=== PATIENT | male | born 1950 | race Caucasian/White ===

== ENCOUNTER 2017-01-10 14:51 | Inpatient (IN) | payer OTHER ==
[~2017-01-10] VITALS: Ht 193 cm; Wt 117.5 kg
[2017-01-10 17:35] LABS: EOSINOPHIL (%) 2.5 % (0-5); EOSINOPHIL COUNT 0.2 K/uL (0-0.3); HEMATOCRIT 40.5 % (38.0-50.0); IMMATURE GRANULOCYTE (%) 0.3 % (0.0-0.7); IMMATURE GRANULOCYTE COUNT 0.2 K/uL; LYMPHOCYTE COUNT 1.3 K/uL (1.0-2.8); MCH 34.5 PG (29.0-34.0); MCHC 34.6 G/DL (30.0-36.0); MCV 99.8 FL (86-99); MONOCYTE (%) 9.9 % (3-12); MONOCYTE COUNT 0.6 K/uL (0-0.8); NEUTROPHIL (%) 66.9 % (45-76); NEUTROPHIL COUNT 4.3 K/uL (1.8-6.4); RBC DIS.WIDTH-CV 13.7 % (11.8-14.6); RED BLOOD COUNT 4.06 M/uL (4.00-5.50); WHITE BLOOD COUNT 6.4 K/uL (4.1-10.2)
[2017-01-10 17:45] LABS: CHLORIDE 99 mEq/L (99-109)
[2017-01-10 17:46] LABS: POTASSIUM 3.5 mEq/L (3.7-5.4); SODIUM 141 mEq/L (136-147)
[2017-01-10 17:47] LABS: GLUCOSE 80 mg/dL (70-99)
[2017-01-10 17:49] LABS: ANION GAP 16 MEQ/L (2-14)
[2017-01-10 17:51] LABS: GFR ESTIMATE (CALCULATED) > 59 mL/min/
[2017-01-10 17:52] LABS: UREA NITROGEN (BUN) 9 mg/dL (9-23)
[2017-01-10 17:57] LABS: TROP-I INTERPRETATION NEGATIVE; TROPONIN-I 0.03 ng/mL (0.0-0.30)
[2017-01-10 19:02] LABS: PLAT.SUFFICIENCY ADEQUATE; USER ID BW1
[2017-01-10 19:03] LABS: MEAN PLAT.VOLUME 10.3 uM^3 (9.0-12.4); PLATELET COUNT 180 K/uL (156-360)
[2017-01-10] MEDS ORDERED: LIORESAL10 MG PO (22:07)
[2017-01-10] MEDS ORDERED: AMANTADINE100 MG PO (22:07)
[2017-01-10] MEDS ORDERED: LASIX20 MG PO (22:08)
[2017-01-10] MEDS ORDERED: AVONEX30 MICROGR IM (22:08)
[2017-01-10] MEDS ORDERED: THERAGRAN1 TABLET PO (22:09)
[2017-01-10] MEDS ORDERED: NIZORAL SHAMPO120 ML TP (22:09)
[2017-01-10] MEDS ORDERED: ROSADAN45 G1 TP (22:09)
[2017-01-10] MEDS ORDERED: VITAMIN B-1100 MG PO (22:10)
[2017-01-10] MEDS ORDERED: PAXIL40 MG PO (22:10)
[2017-01-10] MEDS ORDERED: PRAVACHOL80 MG PO (22:10)
[2017-01-10] MEDS ORDERED: AMBIEN5 MG PO (22:10)
[2017-01-10] MEDS ORDERED: LITE COAT ASPI325 M1 PO (22:11)
[2017-01-10] MEDS ORDERED: NEO-BACIT-POLY3.5 G2 BOTH EYES (22:11)
[2017-01-10] MEDS ORDERED: ZESTRIL40 MG PO (22:12)
[2017-01-10] MEDS ORDERED: COLACE100 MG PO (22:12)
[2017-01-10] MEDS ORDERED: KEFLEX500 MG PO (22:20)
[2017-01-11] VITALS (7 sets, daily range): BP systolic 102–164; BP diastolic 55–87
[2017-01-11 01:06] LABS: PROTHROMBIN TIME 10.5 (9.2-11.2)
[2017-01-11 08:08] LABS: EOSINOPHIL (%) 0.2 % (0-5); IMMATURE GRANULOCYTE (%) 0.6 % (0.0-0.7); LYMPHOCYTE COUNT 1.1 K/uL (1.0-2.8); MCH 32.5 PG (29.0-34.0); MCHC 32.4 G/DL (30.0-36.0); MCV 100.3 FL (86-99); MEAN PLAT.VOLUME 10.4 uM^3 (9.0-12.4); MONOCYTE COUNT 0.6 K/uL (0-0.8); NEUTROPHIL (%) 65.5 % (45-76); NEUTROPHIL COUNT 3.5 K/uL (1.8-6.4); PLATELET COUNT 150 K/uL (156-360); RBC DIS.WIDTH-CV 13.5 % (11.8-14.6); RBC DIS.WIDTH-SD 49.2 % (39-53); RED BLOOD COUNT 3.79 M/uL (4.00-5.50); WHITE BLOOD COUNT 5.3 K/uL (4.1-10.2)
[2017-01-11 08:59] LABS: ANION GAP 13 MEQ/L (2-14); CHLORIDE 100 MEQ/L (99-109); GFR ESTIMATE (CALCULATED) > 59 mL/min/; POTASSIUM 3.4 MEQ/L (3.7-5.4); SAMPLE HEMOLYSIS CHECK 0; SAMPLE ICTERIC CHECK 0; SAMPLE LIPEMIA CHECK 0; SODIUM 139 MEQ/L (136-147); UREA NITROGEN (BUN) 10 mg/dL (9-23)
[2017-01-11 09:08] LABS: GLUCOSE 115 mg/dL (70-99)
[2017-01-12 03:58] VITALS: BP 121/73
[2017-01-12 05:14] LABS: EOSINOPHIL (%) 2.2 % (0-5); EOSINOPHIL COUNT 0.1 K/uL (0-0.3); HEMATOCRIT 34.9 % (38.0-50.0); IMMATURE GRANULOCYTE (%) 0.4 % (0.0-0.7); LYMPHOCYTE COUNT 1.2 K/uL (1.0-2.8); MCH 33.1 PG (29.0-34.0); MCHC 32.7 G/DL (30.0-36.0); MCV 101.5 FL (86-99); MEAN PLAT.VOLUME 10.4 uM^3 (9.0-12.4); MONOCYTE (%) 12.3 % (3-12); MONOCYTE COUNT 0.6 K/uL (0-0.8); NEUTROPHIL (%) 59.4 % (45-76); NEUTROPHIL COUNT 2.7 K/uL (1.8-6.4); PLATELET COUNT 119 K/uL (156-360); RBC DIS.WIDTH-CV 13.4 % (11.8-14.6); RBC DIS.WIDTH-SD 49.4 % (39-53); RED BLOOD COUNT 3.44 M/uL (4.00-5.50); WHITE BLOOD COUNT 4.6 K/uL (4.1-10.2)
[2017-01-12 05:39] LABS: ANION GAP 9 MEQ/L (2-14); CHLORIDE 103 MEQ/L (99-109); GFR ESTIMATE (CALCULATED) > 59 mL/min/; GLUCOSE 106 mg/dL (70-99); MAGNESIUM 1.4 mg/dl (1.3-2.7); POTASSIUM 3.1 MEQ/L (3.7-5.4); SAMPLE HEMOLYSIS CHECK 0; SAMPLE ICTERIC CHECK 0; SAMPLE LIPEMIA CHECK 0; SODIUM 141 MEQ/L (136-147); UREA NITROGEN (BUN) 6 mg/dL (9-23)
[2017-01-12 07:46] VITALS: BP 119/74
[2017-01-12 11:30] VITALS: BP 126/64
[2017-01-12 15:57] VITALS: BP 139/71
[2017-01-12 19:39] VITALS: BP 142/76
[2017-01-12 23:54] VITALS: BP 169/76
[2017-01-13 05:24] VITALS: BP 157/88
[2017-01-13 08:30] VITALS: BP 125/74
[2017-01-13 08:49] LABS: EOSINOPHIL (%) 4.6 % (0-5); EOSINOPHIL COUNT 0.2 K/uL (0-0.3); HEMATOCRIT 36.6 % (38.0-50.0); IMMATURE GRANULOCYTE (%) 0.8 % (0.0-0.7); LYMPHOCYTE COUNT 1.3 K/uL (1.0-2.8); MCH 34.6 PG (29.0-34.0); MCHC 33.9 G/DL (30.0-36.0); MCV 102.2 FL (86-99); MEAN PLAT.VOLUME 10.4 uM^3 (9.0-12.4); MONOCYTE (%) 9.9 % (3-12); MONOCYTE COUNT 0.5 K/uL (0-0.8); NEUTROPHIL (%) 59.2 % (45-76); NEUTROPHIL COUNT 3.1 K/uL (1.8-6.4); PLATELET COUNT 120 K/uL (156-360); RBC DIS.WIDTH-CV 13.1 % (11.8-14.6); RBC DIS.WIDTH-SD 48.7 % (39-53); RED BLOOD COUNT 3.58 M/uL (4.00-5.50); WHITE BLOOD COUNT 5.3 K/uL (4.1-10.2)
[2017-01-13 10:43] LABS: ANION GAP 9 MEQ/L (2-14); CHLORIDE 101 MEQ/L (99-109); GFR ESTIMATE (CALCULATED) > 59 mL/min/; GLUCOSE 105 mg/dL (70-99); MAGNESIUM 1.7 mg/dl (1.3-2.7); POTASSIUM 3.7 MEQ/L (3.7-5.4); SAMPLE HEMOLYSIS CHECK 0; SAMPLE ICTERIC CHECK 0; SAMPLE LIPEMIA CHECK 0; SODIUM 142 MEQ/L (136-147); UREA NITROGEN (BUN) 6 mg/dL (9-23)
[2017-01-13 11:30] VITALS: BP 126/65
[2017-01-13 15:42] VITALS: BP 141/77
[2017-01-13 19:41] VITALS: BP 136/70
[2017-01-14] VITALS (7 sets, daily range): BP systolic 130–150; BP diastolic 67–79
[2017-01-14 06:09] LABS: EOSINOPHIL (%) 3.7 % (0-5); EOSINOPHIL COUNT 0.2 K/uL (0-0.3); HEMATOCRIT 35.1 % (38.0-50.0); IMMATURE GRANULOCYTE (%) 0.8 % (0.0-0.7); LYMPHOCYTE COUNT 1.4 K/uL (1.0-2.8); MCH 33.3 PG (29.0-34.0); MCV 100.9 FL (86-99); MEAN PLAT.VOLUME 10.6 uM^3 (9.0-12.4); MONOCYTE (%) 12.1 % (3-12); MONOCYTE COUNT 0.6 K/uL (0-0.8); NEUTROPHIL (%) 53.9 % (45-76); NEUTROPHIL COUNT 2.6 K/uL (1.8-6.4); PLATELET COUNT 128 K/uL (156-360); RBC DIS.WIDTH-CV 13.2 % (11.8-14.6); RBC DIS.WIDTH-SD 47.9 % (39-53); RED BLOOD COUNT 3.48 M/uL (4.00-5.50); WHITE BLOOD COUNT 4.9 K/uL (4.1-10.2)
[2017-01-14 06:25] LABS: ANION GAP 6 MEQ/L (2-14); CHLORIDE 102 MEQ/L (99-109); GFR ESTIMATE (CALCULATED) > 59 mL/min/; GLUCOSE 112 mg/dL (70-99); MAGNESIUM 1.7 mg/dl (1.3-2.7); POTASSIUM 3.1 MEQ/L (3.7-5.4); SAMPLE HEMOLYSIS CHECK 0; SAMPLE ICTERIC CHECK 0; SAMPLE LIPEMIA CHECK 0; SODIUM 139 MEQ/L (136-147); UREA NITROGEN (BUN) 5 mg/dL (9-23)
[2017-01-15 03:42] VITALS: BP 134/86
[2017-01-15 06:03] LABS: ANION GAP 7 MEQ/L (2-14); CHLORIDE 103 MEQ/L (99-109); GFR ESTIMATE (CALCULATED) > 59 mL/min/; GLUCOSE 107 mg/dL (70-99); MAGNESIUM 1.8 mg/dl (1.3-2.7); POTASSIUM 3.3 MEQ/L (3.7-5.4); SAMPLE HEMOLYSIS CHECK 0; SAMPLE ICTERIC CHECK 0; SAMPLE LIPEMIA CHECK 0; SODIUM 140 MEQ/L (136-147); UREA NITROGEN (BUN) 7 mg/dL (9-23)
[2017-01-15 06:50] LABS: EOSINOPHIL (%) 3.7 % (0-5); EOSINOPHIL COUNT 0.2 K/uL (0-0.3); HEMATOCRIT 35.4 % (38.0-50.0); IMMATURE GRANULOCYTE (%) 0.7 % (0.0-0.7); LYMPHOCYTE COUNT 1.3 K/uL (1.0-2.8); MCH 34.8 PG (29.0-34.0); MCHC 34.2 G/DL (30.0-36.0); MCV 101.7 FL (86-99); MEAN PLAT.VOLUME 11.3 uM^3 (9.0-12.4); MONOCYTE COUNT 0.6 K/uL (0-0.8); NEUTROPHIL (%) 51.6 % (45-76); NEUTROPHIL COUNT 2.2 K/uL (1.8-6.4); PLATELET COUNT 139 K/uL (156-360); RBC DIS.WIDTH-CV 13.4 % (11.8-14.6); RBC DIS.WIDTH-SD 49.1 % (39-53); RED BLOOD COUNT 3.48 M/uL (4.00-5.50); WHITE BLOOD COUNT 4.3 K/uL (4.1-10.2)
[2017-01-15 08:33] VITALS: BP 128/64
[2017-01-15 13:15] VITALS: BP 123/73
[2017-01-15 16:16] VITALS: BP 142/73
[2017-01-15 19:31] VITALS: BP 138/92
[2017-01-15 23:09] VITALS: BP 146/81
[2017-01-16 07:39] VITALS: BP 159/84
[2017-01-16 08:52] LABS: ANION GAP 7 MEQ/L (2-14); CHLORIDE 103 MEQ/L (99-109); GFR ESTIMATE (CALCULATED) > 59 mL/min/; GLUCOSE 96 mg/dL (70-99); MAGNESIUM 1.9 mg/dl (1.3-2.7); POTASSIUM 3.9 MEQ/L (3.7-5.4); SAMPLE HEMOLYSIS CHECK 0; SAMPLE ICTERIC CHECK 0; SAMPLE LIPEMIA CHECK 0; SODIUM 141 MEQ/L (136-147); UREA NITROGEN (BUN) 7 mg/dL (9-23)
[2017-01-16 11:56] VITALS: BP 140/77
[2017-01-16 16:15] VITALS: BP 152/89
[2017-01-16 19:52] VITALS: BP 158/79
[2017-01-16 23:29] VITALS: BP 153/79
[2017-01-17 04:10] VITALS: BP 161/80
[2017-01-17 05:37] LABS: HEMATOCRIT 39.7 % (38.0-50.0); MCH 34.9 PG (29.0-34.0); MCV 102.6 FL (86-99); MEAN PLAT.VOLUME 11.3 uM^3 (9.0-12.4); PLATELET COUNT 165 K/uL (156-360); RBC DIS.WIDTH-CV 13.7 % (11.8-14.6); RBC DIS.WIDTH-SD 51.4 % (39-53); RED BLOOD COUNT 3.87 M/uL (4.00-5.50); WHITE BLOOD COUNT 4.8 K/uL (4.1-10.2)
[2017-01-17 06:03] LABS: ANION GAP 8 MEQ/L (2-14); CHLORIDE 103 MEQ/L (99-109); GFR ESTIMATE (CALCULATED) > 59 mL/min/; GLUCOSE 96 mg/dL (70-99); POTASSIUM 3.6 MEQ/L (3.7-5.4); SAMPLE HEMOLYSIS CHECK 0; SAMPLE ICTERIC CHECK 0; SAMPLE LIPEMIA CHECK 0; SODIUM 141 MEQ/L (136-147); UREA NITROGEN (BUN) 9 mg/dL (9-23)
[2017-01-17 08:11] VITALS: BP 152/82
[2017-01-17 11:42] VITALS: BP 154/78
[2017-01-17 15:53] VITALS: BP 127/68
[2017-01-17 20:27] VITALS: BP 121/63
[2017-01-17 23:58] VITALS: BP 139/78
[2017-01-18 04:12] VITALS: BP 152/83
[2017-01-18 05:29] LABS: HEMATOCRIT 40.2 % (38.0-50.0); MCH 34.4 PG (29.0-34.0); MCHC 33.6 G/DL (30.0-36.0); MCV 102.3 FL (86-99); MEAN PLAT.VOLUME 11.3 uM^3 (9.0-12.4); PLATELET COUNT 184 K/uL (156-360); RBC DIS.WIDTH-CV 13.7 % (11.8-14.6); RBC DIS.WIDTH-SD 51.9 % (39-53); RED BLOOD COUNT 3.93 M/uL (4.00-5.50); WHITE BLOOD COUNT 5.1 K/uL (4.1-10.2)
[2017-01-18 05:38] LABS: ANION GAP 8 MEQ/L (2-14); CHLORIDE 103 MEQ/L (99-109); GFR ESTIMATE (CALCULATED) > 59 mL/min/; GLUCOSE 119 mg/dL (70-99); POTASSIUM 3.9 MEQ/L (3.7-5.4); SAMPLE HEMOLYSIS CHECK 0; SAMPLE ICTERIC CHECK 0; SAMPLE LIPEMIA CHECK 0; SODIUM 141 MEQ/L (136-147); UREA NITROGEN (BUN) 11 mg/dL (9-23)
[2017-01-18 08:00] VITALS: BP 132/70
[2017-01-18 11:50] VITALS: BP 127/87
[2017-01-18 16:00] VITALS: BP 110/62
[2017-01-18 19:40] VITALS: BP 137/77
[2017-01-18 23:34] VITALS: BP 126/71
[2017-01-19 04:06] VITALS: BP 152/83
[2017-01-19 06:01] LABS: MCH 33.7 PG (29.0-34.0); MCHC 32.8 G/DL (30.0-36.0); MCV 102.8 FL (86-99); MEAN PLAT.VOLUME 10.8 uM^3 (9.0-12.4); PLATELET COUNT 215 K/uL (156-360); RBC DIS.WIDTH-CV 13.4 % (11.8-14.6); RBC DIS.WIDTH-SD 50.6 % (39-53); RED BLOOD COUNT 3.89 M/uL (4.00-5.50); WHITE BLOOD COUNT 4.8 K/uL (4.1-10.2)
[2017-01-19 08:00] VITALS: BP 129/75
[2017-01-19 12:00] VITALS: BP 110/81
[2017-01-19 16:00] VITALS: BP 126/72
[2017-01-19 19:27] VITALS: BP 130/73
[2017-01-19 23:26] VITALS: BP 152/84
[2017-01-20 04:35] VITALS: BP 127/79
[2017-01-20 07:49] VITALS: BP 124/80
[2017-01-20 11:58] VITALS: BP 131/79
[2017-01-20 15:56] VITALS: BP 120/68
[2017-01-20 20:42] VITALS: BP 121/66
[2017-01-21] VITALS (7 sets, daily range): BP systolic 114–130; BP diastolic 55–77
[2017-01-22] VITALS (7 sets, daily range): BP systolic 108–138; BP diastolic 56–76
[2017-01-22 03:01] LABS: HEMATOCRIT 37.6 % (38.0-50.0); MCH 33.6 PG (29.0-34.0); MCHC 32.4 G/DL (30.0-36.0); MCV 103.6 FL (86-99); MEAN PLAT.VOLUME 10.2 uM^3 (9.0-12.4); PLATELET COUNT 245 K/uL (156-360); RBC DIS.WIDTH-CV 13.1 % (11.8-14.6); RBC DIS.WIDTH-SD 50.6 % (39-53); RED BLOOD COUNT 3.63 M/uL (4.00-5.50); WHITE BLOOD COUNT 5.9 K/uL (4.1-10.2)
[2017-01-23 04:07] VITALS: BP 132/76
[2017-01-23 07:19] VITALS: BP 146/68
[2017-01-23 11:51] VITALS: BP 145/67
[2017-01-23 15:38] VITALS: BP 169/88
[2017-01-23 20:41] VITALS: BP 108/58
[2017-01-23 23:36] VITALS: BP 125/69
[2017-01-24 04:05] VITALS: BP 116/64
[2017-01-24 06:06] LABS: HEMATOCRIT 37.4 % (38.0-50.0); MCH 33.6 PG (29.0-34.0); MCHC 32.4 G/DL (30.0-36.0); MCV 103.9 FL (86-99); MEAN PLAT.VOLUME 10.8 uM^3 (9.0-12.4); PLATELET COUNT 263 K/uL (156-360); RBC DIS.WIDTH-CV 13.2 % (11.8-14.6); RBC DIS.WIDTH-SD 51.5 % (39-53); WHITE BLOOD COUNT 6.1 K/uL (4.1-10.2)
[2017-01-24 07:55] VITALS: BP 125/72
[2017-01-24 11:13] VITALS: BP 144/75
[2017-01-24] MEDS ORDERED: LO-DOSE ASPIRIN81 M2 PO (12:18)
[2017-01-24] MEDS ORDERED: FOLIC ACID1 MG PO (12:20)
[2017-01-24 16:22] VITALS: BP 123/55
[2017-01-24 19:37] VITALS: BP 111/65
[2017-01-24 23:28] VITALS: BP 118/69
[2017-01-25 04:35] VITALS: BP 131/71
[2017-01-25 08:00] VITALS: BP 128/86
[2017-01-25 12:10] VITALS: BP 135/70
== END 2017-01-25 13:15 | DRG 602 ==
LOC: EME 14:51 → EDOF 22:26 → 3EAST 22:26
PROVIDERS: Emergency Medicine; Hospitalist; Internal Medicine; Physician Assistant
PROC: 0HDMXZZ Extraction of Right Foot Skin, External Approach (ICD-10-PCS; principal; 2017-01-11)
DX: L03.115 Cellulitis of right lower limb (principal); I26.99 Other pulmonary embolism without acute cor pulmonale; F10.239 Alcohol dependence with withdrawal, unspecified; C22.8 Malignant neoplasm of liver, primary, unspecified as to type; D69.6 Thrombocytopenia, unspecified; C79.72 Secondary malignant neoplasm of left adrenal gland; I16.9 Hypertensive crisis, unspecified; N28.1 Cyst of kidney, acquired; S92.501A Displaced unspecified fracture of right lesser toe(s), initial encounter for closed fracture; S92.502A Displaced unspecified fracture of left lesser toe(s), initial encounter for closed fracture; I87.8 Other specified disorders of veins; J44.9 Chronic obstructive pulmonary disease, unspecified; G35 Multiple sclerosis; R29.6 Repeated falls; E66.01 Morbid (severe) obesity due to excess calories; I83.12 Varicose veins of left lower extremity with inflammation; I83.11 Varicose veins of right lower extremity with inflammation; E87.6 Hypokalemia; K80.20 Calculus of gallbladder without cholecystitis without obstruction; K76.0 Fatty (change of) liver, not elsewhere classified; Z87.891 Personal history of nicotine dependence
CPT/HCPCS: 71020; 71275; 73630; 74177; 74183; 80048; 83735; 84484; 85025; 85027; 85379; 85610; 85730; 87040; 93005; 93306; 93970; 94799; 97530 GO; 97530 GP; 99281; 99285; G9033; J0690; J2405; J3370; J7030

== ENCOUNTER 2017-03-05 09:18 | Inpatient (IN) | payer OTHER ==
[~2017-03-05] VITALS: Ht 182.9 cm; Wt 108.3 kg
[~2017-03-05 09:18] MED LIST: AMANTADINE100 MG PO; AMBIEN5 MG PO; AVONEX30 MICROGR IM; COLACE100 MG PO; FOLIC ACID1 MG PO; KEFLEX500 MG PO; LASIX20 MG PO; LIORESAL10 MG PO; LITE COAT ASPI325 M1 PO; LO-DOSE ASPIRIN81 M2 PO; NEO-BACIT-POLY3.5 G2 BOTH EYES; NIZORAL SHAMPO120 ML TP; PAXIL40 MG PO; PRAVACHOL80 MG PO; ROSADAN45 G1 TP; THERAGRAN1 TABLET PO; VITAMIN B-1100 MG PO; ZESTRIL40 MG PO
[2017-03-05 10:10] LABS: EOSINOPHIL (%) 2.7 % (0-5); EOSINOPHIL COUNT 0.2 K/uL (0-0.3); IMMATURE GRANULOCYTE (%) 0.4 % (0.0-0.7); INSTRUMENT ABS NEUTROPHIL CT 5.3 K/uL; LYMPHOCYTE COUNT 1.7 K/uL (1.0-2.8); MCH 31.4 PG (29.0-34.0); MCHC 33.3 G/DL (30.0-36.0); MCV 94.2 FL (86-99); MEAN PLAT.VOLUME 9.9 uM^3 (9.0-12.4); MONOCYTE (%) 9.1 % (3-12); MONOCYTE COUNT 0.7 K/uL (0-0.8); NEUTROPHIL (%) 65.9 % (45-76); NEUTROPHIL COUNT 5.3 K/uL (1.8-6.4); PLATELET COUNT 266 K/uL (156-360); RBC DIS.WIDTH-CV 13.2 % (11.8-14.6); RED BLOOD COUNT 3.82 M/uL (4.00-5.50)
[2017-03-05 10:18] LABS: CHLORIDE 101 mEq/L (99-109); POTASSIUM 4.5 mEq/L (3.7-5.4); SODIUM 138 mEq/L (136-147)
[2017-03-05 10:21] LABS: GLUCOSE 103 mg/dL (70-99)
[2017-03-05 10:22] LABS: ANION GAP 9 MEQ/L (2-14); TOTAL BILIRUBIN 0.8 mg/dL (0.0-1.0)
[2017-03-05 10:24] LABS: ALKALINE PHOSPHATASE 72 IU/L (3-129); GFR ESTIMATE (CALCULATED) > 59 mL/min/
[2017-03-05 10:25] LABS: UREA NITROGEN (BUN) 11 mg/dL (9-23)
[2017-03-05 17:09] VITALS: BP 131/78
[2017-03-05 22:41] VITALS: BP 128/76
[2017-03-06 07:02] VITALS: BP 126/70
[2017-03-06 07:10] LABS: HEMATOCRIT 33.1 % (38.0-50.0); MCH 31.6 PG (29.0-34.0); MCHC 33.2 G/DL (30.0-36.0); MCV 95.1 FL (86-99); MEAN PLAT.VOLUME 10.3 uM^3 (9.0-12.4); PLATELET COUNT 215 K/uL (156-360); RBC DIS.WIDTH-CV 13.2 % (11.8-14.6); RBC DIS.WIDTH-SD 45.2 % (39-53); RED BLOOD COUNT 3.48 M/uL (4.00-5.50); WHITE BLOOD COUNT 6.6 K/uL (4.1-10.2)
[2017-03-06 07:38] LABS: ANION GAP 7 MEQ/L (2-14); CHLORIDE 104 MEQ/L (99-109); GFR ESTIMATE (CALCULATED) > 59 mL/min/; GLUCOSE 111 mg/dL (70-99); POTASSIUM 3.8 MEQ/L (3.7-5.4); SAMPLE HEMOLYSIS CHECK 0; SAMPLE ICTERIC CHECK 0; SAMPLE LIPEMIA CHECK 0; SODIUM 139 MEQ/L (136-147); UREA NITROGEN (BUN) 9 mg/dL (9-23)
[2017-03-06 15:31] VITALS: BP 124/76
[2017-03-06 22:26] VITALS: BP 132/78
[2017-03-07 06:50] LABS: EOSINOPHIL (%) 4.7 % (0-5); EOSINOPHIL COUNT 0.3 K/uL (0-0.3); HEMATOCRIT 33.8 % (38.0-50.0); IMMATURE GRANULOCYTE (%) 0.7 % (0.0-0.7); IMMATURE GRANULOCYTE COUNT 0.1 K/uL; INSTRUMENT ABS NEUTROPHIL CT 3.9 K/uL; MCH 31.4 PG (29.0-34.0); MCHC 33.4 G/DL (30.0-36.0); MCV 93.9 FL (86-99); MEAN PLAT.VOLUME 10.1 uM^3 (9.0-12.4); MONOCYTE (%) 9.2 % (3-12); MONOCYTE COUNT 0.6 K/uL (0-0.8); NEUTROPHIL (%) 56.7 % (45-76); NEUTROPHIL COUNT 3.9 K/uL (1.8-6.4); PLATELET COUNT 212 K/uL (156-360); RBC DIS.WIDTH-SD 44.3 % (39-53)
[2017-03-07 07:05] VITALS: BP 116/65
[2017-03-07 07:19] LABS: ALKALINE PHOSPHATASE 64 IU/L (3-129); ANION GAP 9 MEQ/L (2-14); CHLORIDE 105 MEQ/L (99-109); GFR ESTIMATE (CALCULATED) > 59 mL/min/; GLUCOSE 104 mg/dL (70-99); POTASSIUM 3.8 MEQ/L (3.7-5.4); SAMPLE HEMOLYSIS CHECK 0; SAMPLE ICTERIC CHECK 0; SAMPLE LIPEMIA CHECK 0; SODIUM 141 MEQ/L (136-147); TOTAL BILIRUBIN 0.6 MG/DL (0.0-1.0); UREA NITROGEN (BUN) 9 mg/dL (9-23)
[2017-03-07 15:29] VITALS: BP 110/71
[2017-03-07 22:36] VITALS: BP 127/64
[2017-03-08 06:58] VITALS: BP 142/76
[2017-03-08] MEDS ORDERED: DOXYCYCLINE HY100 MG PO (12:56)
== END 2017-03-08 15:08 | DRG 603 ==
LOC: EME 09:18 → EDOF 12:57 → 5EAST 12:57
PROVIDERS: Emergency Medicine; Hospitalist; Internal Medicine
DX: L03.116 Cellulitis of left lower limb (principal); I87.8 Other specified disorders of veins; L03.115 Cellulitis of right lower limb; G35 Multiple sclerosis; E78.5 Hyperlipidemia, unspecified; I10 Essential (primary) hypertension; N31.9 Neuromuscular dysfunction of bladder, unspecified; N39.498 Other specified urinary incontinence; Z87.891 Personal history of nicotine dependence; Z86.711 Personal history of pulmonary embolism; Z85.46 Personal history of malignant neoplasm of prostate; Z91.81 History of falling
CPT/HCPCS: 80048; 80053; 80202; 83605; 85025; 85027; 87040; 93970; 97530 GP; 99281; 99285; G9033; J0690; J1650; J3370; J7050

== ENCOUNTER 2017-08-11 15:02 | Emergency (ER) | payer OTHER ==
[~2017-08-11] VITALS: Ht 182.9 cm; Wt 116.1 kg
[~2017-08-11 15:02] MED LIST changes: +DOXYCYCLINE HY100 MG PO
[2017-08-11 15:47] LABS: ADD MIUA? YES; BILIRUBIN NEGATIVE; BLOOD NEGATIVE; COLOR YELLOW ((YELLOW)); GLUCOSE (STRIP) NEGATIVE; KETONES NEGATIVE; LEUKOCYTES SMALL; NITRITE NEGATIVE; PROTEIN (STRIP) NEGATIVE; SPECIFIC GRAVITY 1.006 (1.000-1.030)
[2017-08-11 15:49] LABS: BACTERIA NONE SEEN /HPF; EPITHELIAL CELLS NONE SEEN /HPF; MUCUS NONE SEEN /LPF; RED BLOOD CELLS 0-5 /HPF (0-5); WHITE BLOOD CELLS 20-30 /HPF (0-5)
[2017-08-11 15:51] LABS: EOSINOPHIL (%) 1.1 % (0-5); EOSINOPHIL COUNT 0.1 K/uL (0-0.3); HEMATOCRIT 42.1 % (38.0-50.0); IMMATURE GRANULOCYTE (%) 0.4 % (0.0-0.7); INSTRUMENT ABS NEUTROPHIL CT 7.3 K/uL; LYMPHOCYTE COUNT 1.4 K/uL (1.0-2.8); MCH 31.9 PG (29.0-34.0); MEAN PLAT.VOLUME 9.8 uM^3 (9.0-12.4); MONOCYTE (%) 8.1 % (3-12); MONOCYTE COUNT 0.8 K/uL (0-0.8); NEUTROPHIL (%) 75.8 % (45-76); NEUTROPHIL COUNT 7.3 K/uL (1.8-6.4); PLATELET COUNT 215 K/uL (156-360); RBC DIS.WIDTH-CV 13.6 % (11.8-14.6); RED BLOOD COUNT 4.48 M/uL (4.00-5.50); WHITE BLOOD COUNT 9.6 K/uL (4.1-10.2)
[2017-08-11 15:59] LABS: CHLORIDE 100 mEq/L (99-109); POTASSIUM 4.3 mEq/L (3.7-5.4); SODIUM 138 mEq/L (136-147)
[2017-08-11 16:01] LABS: GLUCOSE 113 mg/dL (70-99)
[2017-08-11 16:02] LABS: ANION GAP 13 MEQ/L (2-14)
[2017-08-11 16:05] LABS: GFR ESTIMATE (CALCULATED) > 59 mL/min/
[2017-08-11 16:06] LABS: UREA NITROGEN (BUN) 12 mg/dL (9-23)
[2017-08-11] MEDS ORDERED: BACTRIM,SEPT1 TABLET PO (16:42)
[2017-08-11 16:58] VITALS: BP 134/93
== END 2017-08-11 17:12 | disposition home or self-care (01) ==
LOC: EME → EDBD 15:02 → EME 15:02
PROVIDERS: Emergency Medicine
PROC: 0T9B70Z Drainage of Bladder with Drainage Device, Via Natural or Artificial Opening (ICD-10-PCS; principal; 2017-08-11)
DX: R33.9 Retention of urine, unspecified (principal); N39.0 Urinary tract infection, site not specified; Z85.46 Personal history of malignant neoplasm of prostate; I10 Essential (primary) hypertension; E78.5 Hyperlipidemia, unspecified; Z87.891 Personal history of nicotine dependence
CPT/HCPCS: 80048; 81003; 85025; 87077; 87086; 87186; 99281; 99285

== ENCOUNTER 2017-09-26 13:34 | Emergency (ER) | payer OTHER ==
[~2017-09-26] VITALS: Ht 180.3 cm; Wt 111.3 kg
[~2017-09-26 13:34] MED LIST changes: +BACTRIM,SEPT1 TABLET PO
[2017-09-26] MEDS ORDERED: LEVAQUIN500 MG PO (15:54)
[2017-09-26 16:13] LABS: ADD MIUA? YES; BILIRUBIN NEGATIVE; BLOOD LARGE; COLOR YELLOW ((YELLOW)); GLUCOSE (STRIP) NEGATIVE; KETONES NEGATIVE; LEUKOCYTES TRACE; NITRITE NEGATIVE; PROTEIN (STRIP) NEGATIVE; SPECIFIC GRAVITY 1.005 (1.000-1.030)
[2017-09-26 16:26] LABS: BACTERIA RARE /HPF; CALCIUM OXALATE CRYSTALS 1+ /HPF; EPITHELIAL CELLS NONE SEEN /HPF; HYALINE CASTS 0-5 /LPF; MUCUS TRACE /LPF; RED BLOOD CELLS 30-40 /HPF (0-5); UCUL ADDED? YES
[2017-09-26 17:30] VITALS: BP 130/79
== END 2017-09-26 17:30 | disposition home or self-care (01) ==
LOC: EME 13:34
PROVIDERS: Physician Assistant
PROC: 0T9B70Z Drainage of Bladder with Drainage Device, Via Natural or Artificial Opening (ICD-10-PCS; principal; 2017-09-26)
DX: R33.9 Retention of urine, unspecified (principal); C61 Malignant neoplasm of prostate; N36.8 Other specified disorders of urethra; G35 Multiple sclerosis; N31.9 Neuromuscular dysfunction of bladder, unspecified; R31.9 Hematuria, unspecified; Z92.3 Personal history of irradiation; Z87.891 Personal history of nicotine dependence
CPT/HCPCS: 81003; 87077; 87086; 87186; 99281; 99284

== ENCOUNTER 2017-12-28 11:29 | Emergency (ER) | payer OTHER ==
[~2017-12-28] VITALS: Ht 180.3 cm; Wt 130.0 kg
[~2017-12-28 11:29] MED LIST changes: +LEVAQUIN500 MG PO
[2017-12-28 12:12] LABS: HEMATOCRIT 39.4 % (38.0-50.0); HEMOGLOBIN 13.2 G/DL (12.5-16.6); MCH 30.5 PG (29.0-34.0); MCHC 33.5 G/DL (30.0-36.0); PLATELET COUNT 246 K/uL (156-360); RBC DIS.WIDTH-CV 13.5 % (11.8-14.6); RBC DIS.WIDTH-SD 45.6 % (39-53); RED BLOOD COUNT 4.33 M/uL (4.00-5.50); WHITE BLOOD COUNT 8.4 K/uL (4.1-10.2)
[2017-12-28 12:26] LABS: CHLORIDE 99 mEq/L (99-109); POTASSIUM 4.1 mEq/L (3.7-5.4); SODIUM 136 mEq/L (136-147)
[2017-12-28 12:28] LABS: GLUCOSE 94 mg/dL (70-99)
[2017-12-28 12:31] LABS: CREATININE 1.2 mg/dL (0.6-1.3); GFR ESTIMATE (CALCULATED) > 59 mL/min/ (58.99-99999)
[2017-12-28 12:32] LABS: UREA NITROGEN (BUN) 13 mg/dL (9-23)
[2017-12-28 12:34] LABS: TROP-I INTERPRETATION NEGATIVE; TROPONIN-I 0.01 ng/mL (0.0-0.30)
[2017-12-28 15:15] VITALS: BP 141/77
== END 2017-12-28 15:15 | disposition home or self-care (01) ==
LOC: EME 11:29
PROVIDERS: Emergency Medicine
DX: R60.0 Localized edema (principal); M79.89 Other specified soft tissue disorders; I44.4 Left anterior fascicular block; E78.5 Hyperlipidemia, unspecified; I10 Essential (primary) hypertension; F32.9 Major depressive disorder, single episode, unspecified; Z85.840 Personal history of malignant neoplasm of eye; Z85.46 Personal history of malignant neoplasm of prostate; Z87.891 Personal history of nicotine dependence
CPT/HCPCS: 71045; 80048; 83880; 84484; 85027; 93005; 99281; 99285; J1940